=== PATIENT | female | born 1995 | race African-American/Black ===

== ENCOUNTER 2022-10-17 14:15 | Emergency (ER) | payer OTHER, BC, SELFPAY ==
[2022-10-17] VITALS (7 sets, daily range): BP systolic 130–174; BP diastolic 86–107; PULSE 73–85; RESP 14–18; TEMP 36.6; O2SAT 91–99
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
== END 2022-10-17 16:58 | disposition home or self-care (01) ==
LOC: ANHED 16:38
PROVIDERS: Emergency Provider Physician Assistant; PCP Internal Medicine
DX: M54.50 Low back pain, unspecified (principal); V49.40XA Driver injured in collision with unspecified motor vehicles in traffic accident, initial encounter; F90.9 Attention-deficit hyperactivity disorder, unspecified type; F32.A Depression, unspecified
CPT/HCPCS: 99282